=== PATIENT | female | born 1940 | race Caucasian/White ===

== ENCOUNTER → 2019-05-09 | Outpatient (CLI) | payer MEDICARE ==
--- NOTE | 2019-05-09 10:38 | Diagnostic Imaging Report ---
Examination: CT CERVICAL SPINE WO CONTRAST HISTORY:Neck stiffness and pain for the past 3 weeks. COMPARISON:None. TECHNIQUE: Multidetector helical axial images were obtained without contrast from the foramen magnum to T1. Coronal and sagittal reformatted images were done. Bone and soft tissue windows were evaluated. Dose modulation, iterative reconstruction, and/or weight based adjustment of the mA/kV was utilized to reduce the radiation dose to as low as reasonably achievable. FINDINGS: Alignment:Normal lordosis. Vertebrae: Normal height and density. No acute fracture, infection or neoplasm. Disc space heights: Severely narrowed from C3 through T2. Caliber of spinal canal: Developmentally normal. Posterior fossa and craniocervical junction: Foramen magnum patent. No Chiari 1 malformation. Soft tissues: No abnormality. Degenerative changes: C2-C3: Mild bilateral uncovertebral and facet arthropathy result in mild right neural foraminal narrowing. No left foraminal or canal stenosis. C3-C4: Diffuse disc osteophyte complex and bilateral uncovertebral and severe right and mild left facet arthropathy result in mild bilateral neural foraminal narrowing. No canal stenosis. C4-C5: Grade 1 anterolisthesis without fracture. Diffuse disc osteophyte complex and bilateral uncovertebral and facet arthropathy. No foraminal or canal stenosis. C5-C6: Diffuse disc osteophyte complex and bilateral uncovertebral arthropathy result in moderate right neural foraminal narrowing. No left foraminal or canal stenosis. C6-C7: Diffuse disc osteophyte complex and bilateral uncovertebral arthropathy result in mild right neural foraminal narrowing. No left foraminal or canal stenosis. C7-T1: Grade 1 anterolisthesis without fracture. Diffuse disc osteophyte complex results in mild bilateral neural foraminal narrowing. No canal stenosis Visualized lung apices: No abnormalities. IMPRESSION: 1. No acute abnormalities. 2. Degenerative changes from C2-C3 through C7-T1 with moderate right foraminal narrowing at C5-C6. No canal stenosis. 3. Degenerative grade 1 anterolisthesis of C4 on C5 and C7 on T1. Signed by: Dr. Evelyn Zamorano M.D. on 05/09/2019 10:34 AM
== END ==
LOC: CT 08:31
PROVIDERS: ATTEND Family Medicine
DX: M47.892 Other spondylosis, cervical region (principal)
CPT/HCPCS: 72125